=== PATIENT | male | born 1975 | race Caucasian/White ===

== ENCOUNTER 2018-04-01 15:01 | Emergency (ER) | payer MEDICAID ==
[~2018-04-01] VITALS: Ht 167.6 cm; Wt 84.4 kg
[~2018-04-01 15:01] MED LIST: MEDDP PO; SYN25 PO
[2018-04-01 15:07] VITALS: Ht 167.6 cm; Wt 84.4 kg
[2018-04-01 16:01] VITALS: BP 118/64
== END 2018-04-01 16:01 | disposition home or self-care (01) ==
LOC: ED 15:01
DX: S56.812A Strain of other muscles, fascia and tendons at forearm level, left arm, initial encounter (principal); E11.9 Type 2 diabetes mellitus without complications; X58.XXXA Exposure to other specified factors, initial encounter; Y93.89 Activity, other specified; Y92.89 Other specified places as the place of occurrence of the external cause; Y99.8 Other external cause status
CPT/HCPCS: 82962

== ENCOUNTER 2019-04-21 16:36 | Emergency (ER) | payer MEDICAID ==
[~2019-04-21] VITALS: Ht 167.6 cm; Wt 77.6 kg
[2019-04-21 16:41] VITALS: Ht 167.6 cm; Wt 77.6 kg
[2019-04-21 18:48] VITALS: BP 172/117
== END 2019-04-21 18:48 | disposition home or self-care (01) ==
LOC: ED 16:36
DX: S61.451A Open bite of right hand, initial encounter (principal); T63.391A Toxic effect of venom of other spider, accidental (unintentional), initial encounter; E11.9 Type 2 diabetes mellitus without complications; Y92.89 Other specified places as the place of occurrence of the external cause; Y93.89 Activity, other specified; Y99.9 Unspecified external cause status
CPT/HCPCS: 82962